=== PATIENT | female | born 1940 | race Caucasian/White ===

== ENCOUNTER → 2018-02-10 | Outpatient (CLI) | payer OTHER | LOC: RAD 12:29 | DX: Z12.31 Encounter for screening mammogram for malignant neoplasm of breast (principal) ==

== ENCOUNTER → 2018-04-04 | Outpatient (CLI) | payer OTHER | LOC: CAT 12:32 | DX: K80.80 Other cholelithiasis without obstruction (principal); J90 Pleural effusion, not elsewhere classified; R91.1 Solitary pulmonary nodule ==

== ENCOUNTER → 2019-03-29 | Outpatient (CLI) | payer OTHER | LOC: BC 13:09 | DX: Z12.31 Encounter for screening mammogram for malignant neoplasm of breast (principal) ==